=== PATIENT | male | born 1950 | race Caucasian/White ===

== ENCOUNTER 2022-06-18 13:23 | Emergency (ER) | payer MEDICARE ==
[~2022-06-18] VITALS: Ht 182.9 cm; Wt 90.7 kg
[2022-06-18 13:33] VITALS: BP 130/62
--- NOTE | 2022-06-18 13:48 | NUR ---
PATIENT BIBA TO BED 5.
[2022-06-18 14:09] LABS: BASOPHILS % (AUTO) 0.4 % (0.0-2.0); EOSINOPHILS # (AUTO) 0.1 K/uL (0-0.4); EOSINOPHILS % (AUTO) 1.2 % (0.0-4.0); HEMATOCRIT 31.3 % (36-52); HEMOGLOBIN 11.4 g/dL (12.0-18.0); LYMPHOCYTES # (AUTO) 0.3 K/uL (2.0-11.5); LYMPHOCYTES % (AUTO) 3.2 % (20.5-51.1); MEAN CORPUSCULAR HEMOGLOBIN 37 pg (27-31); MEAN CORPUSCULAR HGB CONC 36 g/dL (33-37); MEAN CORPUSCULAR VOLUME 102.2 fL (80-94); MONOCYTES # (AUTO) 0.9 K/uL (0.8-1.0); MONOCYTES % (AUTO) 9.7 % (1.7-9.3); NEUTROPHILS % (AUTO) 85.5 % (42.2-75.2); PLATELET COUNT (AUTO) 113 K/uL (140-450); RED BLOOD CELL COUNT(AUTO) 3.07 MIL/uL (4.20-6.10); RED CELL DISTRIBUTION WIDTH 19.9 % (11.6-13.7); WHITE BLOOD COUNT (AUTO) 9.4 K/uL (4.8-10.8)
[2022-06-18 14:28] LABS: ALBUMIN 3.8 g/dL (3.4-5.0); ANION GAP 9.4 (8-16); ASPARTATE AMINOTRANSFERASE 41 U/L (15-37); CARBON DIOXIDE 31.2 mmol/L (21-32); CHLORIDE 97 mmol/L (98-107); CREATININE 1.3 mg/dL (0.6-1.3); GLUCOSE 198 mg/dL (74-106); POTASSIUM 3.6 mmol/L (3.5-5.1); SODIUM SERUM 134 mmol/L (136-145); UREA NITROGEN, BLOOD 32 mg/dL (7-18)
--- NOTE | 2022-06-18 14:30 | NUR ---
pt altered, no ac distress, oriented times 1, denies any pain, nsr on cm, o2 sat 98% ra, sr up times 2
[2022-06-18 14:56] LABS: ACETAMINOPHEN < 0.5 ug/ml (10-30); SALICYLATE < 2.8 mg/dL (2.8-20.0)
[2022-06-18 16:18] LABS: APPEARANCE,URINE CLEAR (CLEAR); BILIRUBIN,URINE NEGATIVE (NEGATIVE); BLOOD, URINE NEGATIVE (NEGATIVE); COLOR,URINE YELLOW (YELLOW); LEUKOCYTE ESTERASE ,URINE NEGATIVE (NEGATIVE); NITRITE, URINE NEGATIVE (NEGATIVE); UGLUCOSE NEGATIVE (NEGATIVE)
[2022-06-18] MEDS ORDERED: LACTULOSE 20 GM/30 ML UDC PO ONE (17:25)
--- NOTE | 2022-06-18 18:00 | NUR ---
pt awake, oriented to name only, denies any pain, spoke w daughter over the phone, pt denies any pain, nsr on cm, o2 sat 98% ra, sr up times 2, daughter Zofia to be notified when patient gets transferred to
--- NOTE | 2022-06-18 18:22 | NUR ---
pt pt's daughter pmh include: DM, CHF, HTN, asthma, restless leg syndrome
--- NOTE | 2022-06-18 19:30 | NUR ---
Pt received from previous shift, AOx4 at this time, able to make needs known. No c/o SOB or pain.
--- NOTE | 2022-06-18 21:30 | NUR ---
Awake, alert, responsive. No c/o pain or discomfort, no SOB or distress. Patient care provided.
--- NOTE | 2022-06-18 23:11 | NUR ---
Pt resting comfortably at this time, rise and fall of chest noted. No s/s discomfort or distress.
--- NOTE | 2022-06-19 00:01 | NUR ---
Patient to be transferred to [facility]. Is being transferred due to insurance. Receiving facility has accepting physician and available space. ER physician has signed transfer form. Patient or responsible alliance party has agreed to transfer and signed form. Patient belongings inventoried and will be sent with patient. Copy of nursing notes, lab reports, Physicians Orders to be sent with patient. Report called to Facundo GUTIERREZ at receiving facility. [facility] ambulance service has been called for transfer. ETA is [id number].
--- NOTE | 2022-06-19 00:30 | NUR ---
[facility] ARRIVED FOR TRANSFER
[2022-06-19 00:39] VITALS: BP 113/69
--- NOTE | 2022-06-19 00:39 | NUR ---
Pt transfered to [facility] accompanied by ambulatory technologist and EMT. Alert awake and responsive at this time. No s/s discomfort or distress. VSS.
== END 2022-06-19 00:39 | disposition short-term general hospital (02) ==
LOC: MED 13:23
DX: K76.82 Hepatic encephalopathy (principal); Z20.822 Contact with and (suspected) exposure to COVID-19; R41.82 Altered mental status, unspecified; I10 Essential (primary) hypertension; Z79.899 Other long term (current) drug therapy
CPT/HCPCS: 36415; 80053; 81003; 82140; 84484; 85025; 87426; 93005; 99285; G0480; G0482

== ENCOUNTER 2023-01-06 06:02 | Emergency (ER) | payer MEDICARE ==
[~2023-01-06] VITALS: Ht 182.9 cm; Wt 90.7 kg
[2023-01-06 06:05] VITALS: BP 97/61; PULSE 71; RESP 18; TEMP 97.9; O2SAT 97
[2023-01-06 07:30] VITALS: O2SAT 97
[2023-01-06 07:51] LABS: BASOPHILS % (AUTO) 0.6 % (0.0-2.0); EOSINOPHILS # (AUTO) 0.2 K/uL (0-0.4); EOSINOPHILS % (AUTO) 2.5 % (0.0-4.0); HEMATOCRIT 33.7 % (36-52); HEMOGLOBIN 11.8 g/dL (12.0-18.0); LYMPHOCYTES # (AUTO) 0.6 K/uL (2.0-11.5); LYMPHOCYTES % (AUTO) 8.3 % (20.5-51.1); MEAN CORPUSCULAR HEMOGLOBIN 38 pg (27-31); MEAN CORPUSCULAR HGB CONC 35 g/dL (33-37); MEAN CORPUSCULAR VOLUME 108.8 fL (80-94); MONOCYTES % (AUTO) 13.3 % (1.7-9.3); NEUTROPHILS # (AUTO) 5.4 K/uL (1.8-7.7); NEUTROPHILS % (AUTO) 75.3 % (42.2-75.2); PLATELET COUNT (AUTO) 132 K/uL (140-450); RED CELL DISTRIBUTION WIDTH 16.3 % (11.6-13.7); WHITE BLOOD COUNT (AUTO) 7.2 K/uL (4.8-10.8)
[2023-01-06 08:11] LABS: ALANINE AMINOTRANSFERASE 34 U/L (12-78); ALBUMIN 3.4 g/dL (3.4-5.0); ALKALINE PHOSPHATASE 120 U/L (50-136); ANION GAP 12.2 (8-16); ASPARTATE AMINOTRANSFERASE 26 U/L (15-37); CALCIUM 9.5 mg/dL (8.5-10.1); CARBON DIOXIDE 33.3 mmol/L (21-32); CHLORIDE 97 mmol/L (98-107); CREATININE 0.9 mg/dL (0.6-1.3); GLUCOSE 155 mg/dL (74-106); POTASSIUM 3.5 mmol/L (3.5-5.1); SODIUM SERUM 139 mmol/L (136-145); TOTAL BILIRUBIN 3.5 mg/dL (0.0-1.0); UREA NITROGEN, BLOOD 15 mg/dL (7-18)
[2023-01-06 08:18] LABS: INR 1.13 (0.8-1.2); PARTIAL THROMBOPLASTIN TIME 24.2 secs (22-35.6); PROTHROMBIN TIME 11.8 secs (10.8-13.4)
[2023-01-06] MEDS ORDERED: FUROSEMIDE 40 MG/4 ML VIAL IVP ONE (08:20)
[2023-01-06 10:18] VITALS: BP 115/77; PULSE 110; RESP 28; TEMP 98.2; O2SAT 99
== END 2023-01-06 10:18 | disposition home or self-care (01) ==
LOC: MED 06:02
DX: R06.02 Shortness of breath (principal); R06.01 Orthopnea; I11.9 Hypertensive heart disease without heart failure; E11.9 Type 2 diabetes mellitus without complications; Z79.4 Long term (current) use of insulin; Z79.899 Other long term (current) drug therapy
CPT/HCPCS: 36415; 71045; 80053; 82140; 83880; 84484; 85025; 85610; 85730; 93005; 96374; 99285; J1940; Q0092